=== PATIENT | male | born 1995 | race Hispanic/Latino ===

== ENCOUNTER 2018-04-09 00:45 | Emergency (ER) | payer MEDICAID ==
[2018-04-09] MEDS ORDERED: CYCLOBENZAPRINE HCL 10 MG TABLET ONE (00:56)
== END 2018-04-09 01:07 | disposition home or self-care (01) ==
LOC: EDH 00:45
DX: M25.561 Pain in right knee (principal); M79.661 Pain in right lower leg

== ENCOUNTER 2022-07-22 16:50 | Emergency (ER) | payer MEDICAID ==
[~2022-07-22] VITALS: Ht 175.3 cm; Wt 102.1 kg
[2022-07-22 19:13] LABS: CREATININE 1.3 mg/dL (0.5-1.5)
[2022-07-22 19:14] LABS: BASOPHILS % (AUTO) 0.3 % (0.0-5.0); EOSINOPHILS % (AUTO) 0.1 % (0.0-8.0); HEMATOCRIT 41.3 % (42-54); LYMPHOCYTES % (AUTO) 13.7 % (21.0-51.0); MEAN CORPUSCULAR HEMOGLOBIN 30.7 pg (27.0-33.0); MEAN CORPUSCULAR HGB CONC 34.1 g/dL (32.0-36.0); MEAN CORPUSCULAR VOLUME 89.8 fL (79-99); MONOCYTES % (AUTO) 7.4 % (3.0-13.0); NEUTROPHILS % (AUTO) 78.1 % (40.0-77.0); PLATELET COUNT (AUTO) 242 K/uL (130-400); RED CELL DISTRIBUTION WIDTH 12.2 % (11.0-15.5); WHITE BLOOD COUNT (AUTO) 10.9 K/uL (4.8-10.8)
[2022-07-22 19:18] LABS: ALBUMIN 4.2 g/dL (3.5-5.0); TOTAL PROTEIN, SERUM 7.7 g/dL (6.0-8.3)
[2022-07-22] MEDS ORDERED: KETOROLAC 30MG VIAL (30MG/ML) IVP ONE (19:30)
[2022-07-22] MEDS ORDERED: ONDANSETRON 4MG INJ IVP ONE (19:30)
[2022-07-22 20:06] LABS: APPEARANCE,URINE CLEAR (CLEAR); BILIRUBIN,URINE NEGATIVE (NEGATIVE); COLOR,URINE YELLOW (YELLOW); GLUCOSE, URINE (UA) NEGATIVE (NEGATIVE); KETONES,URINE 10 mg/dL (NEGATIVE); LEUKOCYTE ESTERASE ,URINE NEGATIVE Leu/uL (NEGATIVE); NITRATE,URINE NEGATIVE (NEGATIVE); OCCULT BLOOD,URINE NEGATIVE (NEGATIVE); PROTEIN,URINE 30 mg/dL (NEGATIVE); UROBILINOGEN,URINE 0.2 mg/dL (0.2-1.0)
[2022-07-22 20:21] LABS: BACTERIA,URINE RARE /HPF (None Seen); MUCUS,URINE RARE LPF (None Seen); WBC,URINE 0-1 /HPF (0-1)
[2022-07-22] MEDS ORDERED: KETO10 PO (20:28)
[2022-07-22] MEDS ORDERED: TAMSULOSIN HCL 0.4 MG CAP.ER.24H PO SCH (20:30)
[2022-07-22 20:55] VITALS: BP 132/82
== END 2022-07-22 20:56 | disposition home or self-care (01) ==
LOC: EDH 16:50
DX: N20.0 Calculus of kidney (principal); I10 Essential (primary) hypertension
CPT/HCPCS: 99284; 74176; 96374; 96375; 80053; 85025; 81001; 36415; J2405; J1885